=== PATIENT | male | born 1960 | race Caucasian/White ===

== ENCOUNTER 2022-10-19 12:57 | Emergency (ER) | payer OTHER, SELFPAY ==
[2022-10-19 13:20] VITALS: BP 112/69; PULSE 63; RESP 18; TEMP 37.1; O2SAT 96; BMI 36.5
--- NOTE | 2022-10-19 13:24 | CRLHL7_ITS ---
For Patients: As a result of the Century Cures Act, medical imaging exams and procedure reports are released immediately into your electronic medical record. You may view this report before your referring provider. If you have questions, please contact your health care provider. Indication: Fall on blood thinner Technique: Volumetric multidetector CT images of the head were obtained without the administration of low osmolar intravenous contrast. Comparison: None available Findings: There is no intra-axial or extra-axial fluid collection. There is no mass effect or midline shift. There is age-related cortical atrophy with mild sulcal widening and ex vacuo dilatation of the lateral ventricles. There are chronic small vessel disease changes in the subcortical and periventricular white matter without lost morales-white differentiation. There is basal ganglia calcification as well as a small likely vascular calcification in the posterior left chan. Minimal circumscribed extra-axial calcifications along the left temporal pole are appreciated which could represent small calcified dural lesions such as small meningiomas. The orbits and their contents are grossly within normal limits. The bony calvarium is grossly intact. The paranasal sinuses are clear. The mastoid air cells are well aerated. Impression: Age-related and chronic small-vessel disease changes of the brain without acute intracranial abnormality. Please note that all CT scans at this facility use dose modulation, iterative reconstruction, and/or weight-based dosing when appropriate to reduce radiation dose to as low as reasonably achievable. Dictated by Fer Taylor MD @ 10/19/2022 2:32:36 PM (Electronically Signed)
--- NOTE | 2022-10-19 13:51 | CRLHL7_ITS ---
For Patients: As a result of the Century Cures Act, medical imaging exams and procedure reports are released immediately into your electronic medical record. You may view this report before your referring provider. If you have questions, please contact your health care provider. INDICATION: FALL CT CERVICAL SPINE WITHOUT CONTRAST TECHNIQUE: Multidetector axial CT imaging was performed through the cervical spine, without contrast. Sagittal and coronal reconstructions were generated. FINDINGS: No acute fractures are identified. Mature postoperative changes of anterior interbody fusion are noted at the C5-6 level. Scattered mild cervical spine degenerative changes are present. Slight anterolisthesis of C6 on C7 is likely chronic and degenerative in nature. Osseous alignment is otherwise within normal limits and no acute-appearing subluxation is seen. Prevertebral soft tissues are unremarkable. Included portions of the airway and lung apices are within normal limits. IMPRESSION: 1. No fracture, subluxation, or other acute finding identified. 2. Cervical spondylosis and postoperative changes of C5-C6 fusion, as noted above. VITALY ALTAMIRANO MD [facility] Dictated by Bora Altamirano MD @ 10/19/2022 3:08:58 PM Please note that all CT scans at this facility use dose modulation, iterative reconstruction, and/or weight-based dosing when appropriate to reduce radiation dose to as low as reasonably achievable. Dictated by: Bora Altamirano MD @ 10/19/2022 15:09:12 (Electronically Signed)
[2022-10-19 14:00] VITALS: BP 124/64; PULSE 63; RESP 16; O2SAT 99
--- NOTE | 2022-10-19 14:26 | ED_ITS ---
HPI - General Adult General Chief complaint: Head Injury/Pain Stated complaint: Fell, hit back of head Time Seen by Provider: 10/19/22 13:29 Source: patient Mode of arrival: ambulatory Limitations: no limitations History of Present Illness HPI narrative: 62-year-old male coming in today after falling and hitting his head on the concrete. He states that he was walking outside and slipped falling backwards. He denies any back pain or neck pain. Does complain of a headache in the back of the head. Denies any confusion, changes in his vision or hearing. He is not 100% certain whether or not he lost consciousness but does not believe he did. He is on Eliquis. Related Data Home Medications Medication Instructions Recorded Confirmed apixaban 5 mg tablet (Eliquis) mg 10/19/22 atorvastatin 40 mg tablet mg 10/19/22 Allergies Allergy/AdvReac Type Severity Reaction Status Date / Time acetaminophen [From Percocet] Allergy Severe Swelling Verified 10/19/22 13:25 of Lip/Tongue/Throat oxycodone [From Percocet] Allergy Severe Swelling Verified 10/19/22 13:25 of Lip/Tongue/Throat Review of Systems Status of ROS: Reports: 10 or more systems reviewed and unremarkable except as noted in History and below Exam Narrative: Exam Narrative: Overweight, well-developed patient in no acute distress. Alert and oriented. Answers questions appropriately. Mood and affect are appropriate. Thoughts are goal oriented and rational. No tangential or magical thinking noted. Patient speaks in full sentences without needing to catch his breath. HEENT: Normocephalic. Pupils are equally round reactive to light. Extraocular muscles are intact. Conjunctivae are moist without any icterus noted. Moist mucous membranes. Posterior pharynx is normal. Neck is soft without any lymphadenopathy or thyromegaly. No masses are appreciated. Patient has approximately a 1/2 inch laceration to the back of the head, not actively bleeding. Cardiovascular: Heart is regular rate and rhythm S1 and S2 are present without any murmurs. Lungs: Clear to auscultation bilaterally no wheezes rhonchi or rales are appreciated. Patient takes deep breaths without any discomfort. Extremities: Bilateral lower extremities are without edema. Normal DP and PT pulses. Skin: Well perfused without any obvious rashes. Back: Normal appearance. He has no tenderness to palpation at the cervical, thoracic or lumbar spine. He has good range of motion at the neck however with any movement he complains of the whole area feeling very sore. Const: Vital Signs, click to edit/add: Vital Signs - 24 hr 10/19/22 13:20 Temperature 98.8 F Pulse Rate [Left P ulse Oximeter] 63 Respiratory Rate 18 Blood Pressure [Le ft Upper Arm] 112/69 Pulse Oximetry 96 Oxygen Delivery Me thod Room Air Course Course Hospital Course: We did go ahead and proceed with a head and neck CT. Both were unremarkable. Scalp was cleaned with wound cleanser, anesthetized with lidocaine with epinephrine, and 5 ashu were placed. Patient unsure of his last tetanus shot, believes was greater than 10 years ago. Therefore Tdap was updated in the ED today. Vital Signs Vital signs: Initial Vital Signs Temperature 98.8 F 10/19/22 13:20 Temperature Source Temporal Artery Scan 10/19/22 13:20 Pulse Rate 63 10/19/22 13:20 Pulse Rhythm 10/19/22 13:20 Respiratory Rate 18 10/19/22 13:20 Blood Pressure 112/69 10/19/22 13:20 Blood Pressure Mean 83 10/19/22 13:20 Pulse Oximetry 96 10/19/22 13:20 Oxygen Delivery Method 10/19/22 13:20 Vital Signs Temperature 98.8 F 10/19/22 13:20 Pulse Rate 63 10/19/22 13:20 Respiratory Rate 18 10/19/22 13:20 Blood Pressure 112/69 10/19/22 13:20 Pulse Oximetry 96 10/19/22 13:20 Oxygen Delivery Method 10/19/22 13:20 Temperature 98.8 F 10/19/22 13:20 Pulse Rate 63 10/19/22 13:20 Respiratory Rate 18 10/19/22 13:20 Blood Pressure 112/69 10/19/22 13:20 Pulse Oximetry 96 10/19/22 13:20 Oxygen Delivery Method 10/19/22 13:20 Medical Decision Making MDM Narrative Medical decision making narrative: Fall with head injury and laceration of the scalp. For we discussed wound hygiene, signs and symptoms of infection reasons to return for follow-up. Discussed staple removal in 5-7 days. Given that patient will be discharged home at hour four status post fall, I do not anticipate need for follow-up we discussed the potential need for this. Patient was agreeable had no other que stions. Imaging Data CT scan - head: Attestation: I have reviewed the pertinent imaging results. Radiologist's impression: Volumetric multidetector CT images of the head were obtained without the administration of low osmolar intravenous contrast. Comparison: None available Findings: There is no intra-axial or extra-axial fluid collection. There is no mass effect or midline shift. There is age-related cortical atrophy with mild sulcal widening and ex vacuo dilatation of the lateral ventricles. There are chronic small vessel disease changes in the subcortical and periventricular white matter without lost morales-white differentiation. There is basal ganglia calcification as well as a small likely vascular calcification in the posterior left chan. Minimal circumscribed extra-axial calcifications along the left temporal pole are appreciated which could represent small calcified dural lesions such as small meningiomas. The orbits and their contents are grossly within normal limits. The bony calvarium is grossly intact. The paranasal sinuses are clear. The mastoid air cells are well aerated. Impression: Age-related and chronic small-vessel disease changes of the brain without acute intracranial abnormality. Cervical spine CT: Attestation: I have reviewed the pertinent imaging results. Radiologist's impression: CT CERVICAL SPINE WITHOUT CONTRAST TECHNIQUE: Multidetector axial CT imaging was performed through the cervical spine, without contrast. Sagittal and coronal reconstructions were generated. FINDINGS: No acute fractures are identified. Mature postoperative changes of anterior interbody fusion are noted at the C5-6 level. Scattered mild cervical spine degenerative changes are present. Slight anterolisthesis of C6 on C7 is likely chronic and degenerative in nature. Osseous alignment is otherwise within normal limits and no acute-appearing subluxation is seen. Prevertebral soft tissues are unremarkable. Included portions of the airway and lung apices are within normal limits. IMPRESSION: 1. No fracture, subluxation, or other acute finding identified. 2. Cervical spondylosis and postoperative changes of C5-C6 fusion, as noted above. Discharge Plan Discharge Clinical Impression: Head injury, Fall, Laceration of scalp Patient Disposition: Home, Self-Care Condition: Improved Additional Instructions: Keep head clean and dry. Okay to shower like he normally would and wash her hair like he normally would. Be very careful not to snag the ashu. Do not soak the head such as going swimming. Have your ashu removed by your primary care doctor in 5-7 days. Watch for signs of infection which include increasing pain in the area, redness of the area that starts to spread, or purulent drainage from the laceration. If this occurs see your doctor right away. Return to the ER if you develop any vomiting, numbness or weakness of your extremities, or confusion. Prescriptions: No Action atorvastatin 40 mg tablet Label Comments: TAKE 1 TABLET BY MOUTH ONCE DAILY Eliquis 5 mg tablet Label Comments: TAKE 1 TABLET BY MOUTH TWICE DAILY Follow Up/Referrals: Provider,Not a Local [Primary Care Provider] - Stand Alone Forms: [employer] Info Instructions
[2022-10-19 14:30] VITALS: BP 115/71; PULSE 71; RESP 16; O2SAT 96
--- NOTE | 2022-10-19 15:07 | ED.NURSE ---
[place], no [facility] tdap listed, pt states it has been well over 10 years since last dose, pt agrees as long as no horse serum is in the tetanus - checked with [facility] who states there is a possible interaction and pt should have allergy test prior, MD Hemphill updated and stated to have patient follow up with PCP this week for tetanus evaluation/to receive it there. pt agrees this is the right choice.
[2022-10-19 15:38] VITALS: BP 126/74; PULSE 80; RESP 16; TEMP 36.8
== END 2022-10-19 15:39 | disposition home or self-care (01) ==
PROVIDERS: Emergency Provider Family Medicine
DX: S01.01XA Laceration without foreign body of scalp, initial encounter (principal); W01.10XA Fall on same level from slipping, tripping and stumbling with subsequent striking against unspecified object, initial encounter
CPT/HCPCS: 12001; 70450; 72125; 90471; 90715; 99283; 99284

== ENCOUNTER 2023-09-03 13:01 | Outpatient (CLI) | payer OTHER, SELFPAY | END 2023-09-03 13:02 | disposition home or self-care (01) | LOC: WOUND 13:01 | PROVIDERS: Visit Provider Nurse Practitioner Family | DX: E11.622 Type 2 diabetes mellitus with other skin ulcer (principal); L98.493 Non-pressure chronic ulcer of skin of other sites with necrosis of muscle; I50.22 Chronic systolic (congestive) heart failure; Z79.4 Long term (current) use of insulin | CPT/HCPCS: 11043; 11046; 99212 ==

== ENCOUNTER 2023-09-09 13:33 | Outpatient (CLI) | payer OTHER, SELFPAY | END 2023-09-09 13:34 | disposition home or self-care (01) | LOC: WOUND 13:33 | PROVIDERS: Visit Provider Nurse Practitioner Family | DX: E11.622 Type 2 diabetes mellitus with other skin ulcer (principal); L98.493 Non-pressure chronic ulcer of skin of other sites with necrosis of muscle; Z79.4 Long term (current) use of insulin | CPT/HCPCS: 11043 ==

== ENCOUNTER 2023-09-16 15:05 | Outpatient (CLI) | payer OTHER, SELFPAY | END 2023-09-16 15:06 | disposition home or self-care (01) | LOC: WOUND 15:05 | PROVIDERS: Visit Provider Nurse Practitioner Family | DX: E11.622 Type 2 diabetes mellitus with other skin ulcer (principal); L98.493 Non-pressure chronic ulcer of skin of other sites with necrosis of muscle; Z79.4 Long term (current) use of insulin | CPT/HCPCS: 11043 ==

== ENCOUNTER 2023-09-23 14:59 | Outpatient (CLI) | payer OTHER, SELFPAY | END 2023-09-23 15:00 | disposition home or self-care (01) | LOC: WOUND 14:59 | PROVIDERS: Visit Provider Nurse Practitioner Family | DX: E11.622 Type 2 diabetes mellitus with other skin ulcer (principal); L98.493 Non-pressure chronic ulcer of skin of other sites with necrosis of muscle; Z79.4 Long term (current) use of insulin | CPT/HCPCS: 11043 ==

== ENCOUNTER 2023-09-30 14:59 | Outpatient (CLI) | payer OTHER, SELFPAY | END 2023-09-30 15:00 | disposition home or self-care (01) | PROVIDERS: Visit Provider Nurse Practitioner Family | DX: E11.622 Type 2 diabetes mellitus with other skin ulcer (principal); L98.493 Non-pressure chronic ulcer of skin of other sites with necrosis of muscle; I50.22 Chronic systolic (congestive) heart failure; Z79.4 Long term (current) use of insulin | CPT/HCPCS: 11042 ==

== ENCOUNTER 2023-10-07 15:13 | Outpatient (CLI) | payer OTHER, SELFPAY | END 2023-10-07 15:14 | disposition home or self-care (01) | LOC: WOUND 15:13 | PROVIDERS: Visit Provider Family Medicine | DX: E11.622 Type 2 diabetes mellitus with other skin ulcer (principal); L98.493 Non-pressure chronic ulcer of skin of other sites with necrosis of muscle; I50.22 Chronic systolic (congestive) heart failure; Z79.4 Long term (current) use of insulin | CPT/HCPCS: 11042 ==

== ENCOUNTER 2023-10-21 15:39 | Outpatient (CLI) | payer OTHER, SELFPAY | END 2023-10-21 15:40 | disposition home or self-care (01) | LOC: WOUND 15:39 | PROVIDERS: Visit Provider Nurse Practitioner Family | DX: E11.622 Type 2 diabetes mellitus with other skin ulcer (principal); L98.493 Non-pressure chronic ulcer of skin of other sites with necrosis of muscle; I50.22 Chronic systolic (congestive) heart failure; Z79.4 Long term (current) use of insulin | CPT/HCPCS: 97597 ==

== ENCOUNTER 2023-11-04 13:34 | Outpatient (CLI) | payer OTHER, SELFPAY | END 2023-11-04 13:35 | disposition home or self-care (01) | LOC: WOUND 13:34 | PROVIDERS: Visit Provider Nurse Practitioner Family | DX: E11.622 Type 2 diabetes mellitus with other skin ulcer (principal); L98.493 Non-pressure chronic ulcer of skin of other sites with necrosis of muscle; Z79.4 Long term (current) use of insulin | CPT/HCPCS: 97597 ==

== ENCOUNTER 2023-12-02 15:59 | Outpatient (CLI) | payer OTHER, SELFPAY ==
--- OUTSIDE RECORDS SUMMARY | 2023-12-02 16:01 | XMS_ITS | Clinical Summary ---
Author Name Unknown Organization [employer] [facility] Address [place], [place] [address] Care Team Providers Care Dedicated Owner Operator Name Role Phone Maritza Torres RACEHORSE TRAINER Primary Care Provider Coordinators, Vad Unavailable [phone] Michelle Vazquez RACEHORSE TRAINER Unavailable Unavailab le Allergies Active Allergy Reactions Criticality Noted Date Comments Fluoxetine Anxiety,Other - Describe In Comment Field 04/15/2017 makes me crazy makes me crazy Makes me crazy Grass Pollen Edema,Hives High 12/22/2021 Hydromorphone Nausea Only 05/02/2023 No nausea in small doses -larger IV doses makes him nauseous Oxycodone Anaphylaxis,Itching ,Edema High 04/15/2017 Oxycodone-Acetaminophen Anaphylaxis,Vasyl a,I tching High 04/15/2017 Patient tolerates tylenol Medications Medication Sig Dispensed Refills Start Date End Date Status continuous glucose monitor SENSOR KIT (FreeStyle Gerda 14 Day Sensor) FreeStyle Gerda 14 Day Sensor kit REMOVE AND APPLY EVERY 14 DAYS 0 Active amiodarone (CORDARONE) 200 mg tabletIndications:A trial dysrhythmia Take 1 Tablet (200 mg) by mouth once daily. 60 Tablet 1 3 Active atorvastatin (LIPITOR) 40 mg tabletIndications:D yslipidemia Take 1 Tablet (40 mg) by mouth at bedtime. 60 Tablet 1 3 Active dapagliflozin propanediol (FARXIGA) 10 mg tabletIndications:A cute on chronic heart failure, unspecified heart failure type (HC) Take 1 Tablet (10 mg) by mouth once daily. 60 Tablet 1 3 Active pantoprazole (PROTONIX) 40 mg delayed-release tabletIndications:A nticoagulated Take 1 Tablet (40 mg) by mouth once daily. 90 Tablet 1 3 Active sennosides (SENNA) 8.6 mg tabletIndications:D rug-induced constipation Take 2 Tablets (17.2 mg) by mouth once daily if needed for Constipation. 30 Tablet 1 3 Active insulin glargine, U-100, (Lantus Solostar U-100 Insulin) 100 unit/mL (3 mL) penIndications:Type 2 diabetes mellitus with insulin therapy (HC) Inject 14 units subcutaneous every morning AND 8 units once daily in the evening. 15 mL 0 3 Active Insulin Crum, Disposable, (Kortney Pen Needle) 32 gauge x 5/32Indications:Ty pe 2 diabetes mellitus with insulin therapy (HC) As directed. Remove the 2 covers on the insulin pen needle before administering insulin dose. 100 Each 0 3 Active cholestyramine-sucr ose 4 G per scoop (Questran) 4 gram powder Mix 4 g in liquid then take by mouth once daily if needed (loose stools). 0 Active WalkerIndications:C hronic systolic heart failure (HC),LVAD (left ventricular assist device) present (HC),Injury of right knee, initial encounter,Acute on chronic combined systolic (congestive) and diastolic (congestive) heart failure (HC),Ischemic cardiomyopathy Walker with front wheels for home use. 1 Each 0 3 Active acetaminophen (TYLENOL EXTRA STRGTH) 500 mg tabletIndications:A cute pain of left knee Take 2 Tablets (1,000 mg) by mouth three times daily. For 7 days then 1000 mg three times daily as needed for pain Max acetaminophen dose: 4000mg in 24 hrs. 60 Tablet 0 3 Active insulin aspart, U-100, (NovoLOG FlexPen U-100 Insulin) 100 unit/mL (3 mL) pen Inject 8 units subcutaneously with each meal PLUS sliding scale based upon pre-meal blood sugar. 150 - 199...1 units; 200 - 249...2 units; 250 - 299 ...3 units; 300 - 349 ..4 units; 350 or greater...5 units. Max daily dose 33 units 0 Active torsemide (DEMADEX) 20 mg tablet Take 1 tablet by mouth daily if weight >213 lbs. Alert LVAD coordinators if weight falls below 210 lbs. 0 Active medication order composerIndications :Wound infection VASHE wound cleanser 16 fl oz bottle - 2 per month 2 Bottle 2 3 Active sildenafil citrate (VIAGRA) 25 mg tabletIndications:E rectile dysfunction, unspecified erectile dysfunction type Take 1 Tablet (25 mg) by mouth once daily if needed for Erectile Dysfunction. Take 30 min to 4 hours before sexual activity. Max 50mg/24hr. Hold morning Carvedilol on days you use Viagra. 15 Tablet 1 3 Active polyethylene glycol (MIRALAX; GLYCOLAX) 17 g per packet packetIndications:C onstipation due to opioid therapy Mix 17 g in liquid then take by mouth once daily if needed for Constipation. 30 Each 3 3 Active durable medical equipment (DME)Indications:Te ndinitis of left knee,Chronic pain of left knee Reddie Brace, Large 1 Each 0 3 Active carvediloL (Coreg) 6.25 mg tabletIndications:H FrEF (heart failure with reduced ejection fraction) (HC) Take 1 Tablet (6.25 mg) by mouth two times daily. 180 Tablet 3 3 Active sertraline (ZOLOFT) 50 mg tabletIndications:D epression, unspecified depression type Take 2 Tablets (100 mg) by mouth every morning. 180 Tablet 3 3 Active cephalexin (KEFLEX) 500 mg capsuleIndications: Complication involving left ventricular assist device (LVAD), initial encounter Take 1 Capsule (500 mg) by mouth two times daily. 60 Capsule 1 3 Active traZODone (DESYREL) 50 mg tabletIndications:I nsomnia, unspecified type TAKE 1 TABLET BY MOUTH AT BEDTIME, MAY REPEAT ONCE 90 Tablet 3 3 Active traMADoL (ULTRAM) 50 mg tabletIndications:M edial knee pain, right,Sprain of medial collateral ligament of right knee, initial encounter,Primary osteoarthritis of right knee,Tendinitis of left knee,Chronic pain of left knee Take 1 Tablet (50 mg) by mouth every 6 hours if needed for Pain. 20 Tablet 0 3 Active cephalexin (KEFLEX) 500 mg capsuleIndications: Complication involving left ventricular assist device (LVAD), subsequent encounter Take 1 Capsule (500 mg) by mouth two times daily. 60 Capsule 2 4 02/24/20 24 Active ergocalciferol (VITAMIN D2; DRISDOL) 50,000 unit capsuleIndications: Chronic systolic HF (heart failure) (HC) Take 1 Capsule (50,000 units) by mouth every Saturday and for 20 doses. 8 Capsule 2 3 01/21/20 24 Active gabapentin (NEURONTIN) 100 mg capsuleIndications: Chronic systolic HF (heart failure) (HC) Take 1 Capsule (100 mg) by mouth two times daily. 180 Capsule 1 3 Active melatonin 5 mg tab tabletIndications:I nsomnia, unspecified type Take 1 Tablet (5 mg) by mouth at bedtime. 0 3 Active alirocumab (Praluent Pen) 150 mg/mL pnij 0 Active apixaban (ELIQUIS) 5 mg tablet Take 5 mg by mouth. 0 2 Active aspirin chewable 81 mg chewable tablet Chew 81 mg by mouth. 0 3 Active azithromycin (ZITHROMAX) 250 mg tablet 0 Active SantyL ointment APPLY A ROSE THICK LAYER TOPICALLY TO THE WOUNDBED FOLLOW WOUND CARE ORDERS 0 3 Active dulaglutide (Trulicity) 1.5 mg/0.5 mL subcutaneous pen 0 Active escitalopram oxalate (LEXAPRO) 20 mg tablet Take 20 mg by mouth. 0 2 Active furosemide (LASIX) 40 mg tablet Take 1 Tablet by mouth once daily. 0 2 Active glipiZIDE (GLUCOTROL) 10 mg tablet 0 Active LORazepam (ATIVAN) 0.5 mg tab TAKE 1 TABLET BY MOUTH EVERY 8 HOURS NEEDED FOR ANXIETY FOR UP TO 2 DOSES 0 Active metOLazone (ZAROXOLYN) 2.5 mg tablet Take 2.5 mg by mouth once daily if needed. 0 3 Active metoprolol tartrate (LOPRESSOR) 25 mg tablet 0 Active sacubitril-valsarta n (ENTRESTO 49 MG-51 MG TABLET) 49-51 mg tablet 0 Active warfarin (COUMADIN) 1 mg tabletIndications:L VAD (left ventricular assist device) present (HC) Take 3 mg by mouth on /Sat and 4 mg all other days 0 4 Active melatonin 3 mg tabletIndications:I nsomnia, unspecified type Take 1 Tablet (3 mg) by mouth at bedtime. 0 3 11/14/20 23 Discontinu ed(Reorder (E-cancel not sent)) HYDROcodone-acetami nophen (Hayes) 5-325 mg per tabletIndications:M edial knee pain, right Take 1 Tablet by mouth one time if needed for Pain. Twice daily as needed with wound cares. Use least amount possible. Max acetaminophen: 4000mg/24 hrs. 20 Tablet 0 3 11/13/20 Discontinu ed(*Med complete/R egimen complete/L evel of care change) warfarin (COUMADIN) 1 mg tabletIndications:L VAD (left ventricular assist device) present (HC) Take 4 mg on Mondays and Fridays; 3 mg all other days of the week. 280 Tablet 3 3 11/05/20 Discontinu ed(Reorder (E-cancel not sent)) warfarin (COUMADIN) 1 mg tabletIndications:L VAD (left ventricular assist device) present (HC) Take 3 mg daily. 0 3 11/22/20 Discontinu ed(*Medica tion adjustment ) warfarin (COUMADIN) 1 mg tabletIndications:L VAD (left ventricular assist device) present (HC) Take 5 mg by mouth today (11/22/23), then alternate 3 mg and 4 mg every other day, starting with 4 mg on 11/23/23. 360 Tablet 3 3 11/28/19 24 Discontinu ed(*Medica tion adjustment ) Hospital, Clinic, or Other Facility Administered Medication Ordered Dose Route Frequency Start Date End Date Status methylPREDNISolone acetate 40 mg/mL (DEPO-MEDROL) injection 40 mgIndications:Primary osteoarthritis of right knee,Primary osteoarthritis of left knee 40 mg IArtic ONE TIME 12/02/2023 12/02/2023 Ended methylPREDNISolone acetate 40 mg/mL (DEPO-MEDROL) injection 40 mgIndications:Primary osteoarthritis of right knee,Primary osteoarthritis of left knee 40 mg IArtic ONE TIME 12/02/2023 12/02/2023 Ended Active Problems Problem Noted Date Diagnosed Date Chronic HFrEF (heart failure with reduced ejection fraction) 08/05/2023 Extravasation injury of IV c atheter site with other complication 08/05/2023 Cellulitis of arm, left 07/24/2023 Necrotic eschar 07/24/2023 LVAD (left ventricular assist device) present Overview: s/p Heartmate 3 LVAD Implant via Thoracotomy, off pump on 06/03/23 as destination therapy for ICM (previous sternotomy), Protek RVAD placed by Dr. Ruano in [employer] CV Surgeon: Dr. Wilfredo Hargrove Primary HF/VAD Relay Checker: Dr. Samara Prince Primary VAD Coordinator: TBD VAD EMERGENCY Referring MD: Atrial flutter 05/01/2023 Type 2 diabetes mellitus wit h other circulatory complications 12/22/2021 Major depressive disorder 09/28/20212022 Tobacco dependence due to cigarettes 08/04/2021 05/01/2023 Presence of automatic (implantable) cardiac defi brillator 08/03/2021 05/01/2023 Stage 3 chronic kidney disease 06/28/2021 0 05/01/2023 Ischemic cardiomyopathy S/P CABG (coronary artery bypass graft) Morbid obesity Resolved Problems Problem Noted Date Diagnosed Date Resolved Date Chronic systolic heart failure 07/26/2023 08/10/2023 Infection of intravenous catheter 07/24/2023 08/10/2023 ANTONIO (acute kidney injury) 05/01/2023 Fracture of multiple ribs of left side 05/01/2023 08/10/2023 Diabetic ketoacidosis withou t coma associated with type 2 diabetes mellitus 02/14/2023 08/10/2023 Shock circulatory 02/14/2023 08/10/2023 Hyperkalemia 02/14/2023 08/10/2023 Acute non-ST elevation myoca rdial infarction (NSTEMI) 02/14/2023 08/10/2023 Cardiomyopathy, unspecified type 12/22/2021 08/10/2023 Acute kidney failure with le robert of tubular necrosis 08/10/2023 Acute on chronic combined sy stolic (congestive) and diastolic (congestive) heart failure 08/10/2023 ANTONIO (acute kidney injury) Cardiogenic shock 08/10/2023 Encounters Date Type Department Care Team Description 12/02/2023 11:30 AM SLIP MAKER Office Visit [facility] [address] [facility] [place] [address] Edmond Rousseau PA Knee Pain/problem (f/u bilateral knees) 12/02/2023 10:00 AM SLIP MAKER Hospital Encounter [facility] [address] [place] [address] Arrived 12/02/2023 Travel 11/28/2023 Telephone [facility] [address] [facility] [address] [place] [address] Jody Enrique RN Weight 11/28/2023 Telephone [facility] [address] [place] [address] Kaykay Denise, JODI Anticoagulation (INR 1.8) 11/27/2023 3:11 PM SLIP MAKER - 11/27/2023 11:59 PM SLIP MAKER Hospital Encounter [facility] [address], [place] [address] LVAD (left ventricular assist device) present (HC); Chronic systolic HF (heart failure) (HC) 11/27/2023 10:00 AM SLIP MAKER - 11/27/2023 3:10 PM SLIP MAKER Hospital Encounter [facility] [address], [place] [address] 11/27/2023 Travel 11/22/2023 11:00 AM SLIP MAKER - 11/22/2023 11:59 PM SLIP MAKER Hospital Encounter [facility] [address], [place] [address] Dominguez Chi MD Heart failure (HC); LVAD (left ventricular assist device) present (HC); Acute non-ST elevation myocardial infarction (NSTEMI) (HC) 11/22/2023 Travel 11/22/2023 Telephone [facility] [address] [place] [address] Kaykay Denise RN Anticoagulation (INR 1.4) 11/21/2023 Orders Only [facility] Staff, Other Clinical 1 scan: (1-Ord) <No description> 11/13/2023 11:30 AM SLIP MAKER Office Visit [facility] [address] [place] [address] Booker Marc MD Infection 11/13/2023 11:00 AM SLIP MAKER Office Visit [facility] [address] [place] [address] Kimberly Torres, REYES LVAD 11/13/2023 10:00 AM SLIP MAKER Orders Only [facility] [address] [place] [address] Lab 11/13/2023 Travel 11/13/2023 Office Visit [facility] [address] [place] [address] Marbella Montejo, PharmD Medication Management 11/11/2023 10:15 AM SLIP MAKER - 11/11/2023 11:59 PM SLIP MAKER Hospital Encounter [facility] [address] [place] [address] Edmond Rousseau PA Bailey, Lisa, PT 11/11/2023 Travel 11/08/2023 11:00 AM SLIP MAKER Office Visit [facility] [address] [place] [address] Edmond Rousseau PA Follow Up (right knee) 11/08/2023 Travel 11/06/2023 10:15 AM SLIP MAKER - 11/06/2023 11:59 PM SLIP MAKER Hospital Encounter [facility] ? [facility] [address] [place] [address] Edmond Rousseau PA Bailey, Lisa, PT 11/06/2023 Orders Only [facility] [address] [place] [address] Rosibel Johnson, PT <No scans attached> 11/06/2023 Travel 11/05/2023 Telephone [facility] [address] [facility] [address] [place] [phone] Jody Enrique RN Anticoagulation (INR 3.2) 11/05/2023 Telephone [facility] [address] [place] [phone] Jody Enrique RN Anticoagulation (INR 3.2) 11/04/2023 10:15 AM SLIP MAKER - 11/04/2023 11:59 PM SLIP MAKER Hospital Encounter [facility] ? [facility] [address], [place] [address] Edmond Rousseau PA Bailey, Lisa, PT 11/04/2023 Orders Only [facility] Staff, Other Clinical 1 scan: (1-Ord) <No description> 11/04/2023 Travel 10/30/2023 2:13 PM SLIP MAKER - 10/30/2023 11:59 PM SLIP MAKER Hospital Encounter [facility] [address] [place] [address] LVAD (left ventricular assist device) present (HC) 10/30/2023 10:15 AM SLIP MAKER - 10/30/2023 2:12 PM SLIP MAKER Hospital Encounter [facility] ? [facility] [address] [place] [address] TobEdmond maurice PA Bailey, Lisa, PT 10/30/2023 Telephone [facility] [address] [place] [address] Jody Enrique RN Anticoagulation (INR 2.7) 10/30/2023 Orders Only [facility] Staff, Other Clinical 1 scan: (1-Ord) <No description> 10/30/2023 Travel 10/28/2023 10:15 AM SLIP MAKER - 10/28/2023 11:59 PM SLIP MAKER Hospital Encounter [facility] [address] [place] [address] Edmond Rousseau PA Bailey, Lisa, PT 10/28/2023 Travel 10/25/2023 Refill [facility] [address] [place] [address] Fransico Daniel MD Refill Request (Trazodone) 10/23/2023 12:15 PM SLIP MAKER - 10/23/2023 11:59 PM SLIP MAKER Hospital Encounter [facility] [address] [place] [address] Edmond Rousseau PA Bailey, Lisa, PT 10/23/2023 Travel 10/21/2023 9:30 AM SLIP MAKER Office Visit [facility] [address] [place] [address] Booker Marc MD Infection 10/21/2023 9:00 AM SLIP MAKER Office Visit [facility] [address] [place] [address] Megan Hamlin MD LVAD 10/21/2023 8:00 AM SLIP MAKER Orders Only [facility] [address] [place] [address] Lab 10/21/2023 Travel 10/21/2023 Office Visit [facility] [address] [place] [phone] Marbella Montejo, PharmD Medication Management; Error-please disregard (opened in error) 10/14/2023 Telephone [facility] [address] [facility] [address] [place] [address] Jody Enrique RN Anticoagulation (INR 2.4) 10/09/2023 11:00 AM SLIP MAKER Ancillary Procedure [facility] [address] [place] [phone] 10/09/2023 10:30 AM SLIP MAKER Office Visit [facility] [address] [place] [address] Edmond Rousseau PA Follow Up (right knee) 10/09/2023 Travel 10/08/2023 8:23 AM SLIP MAKER - 10/08/2023 11:59 PM SLIP MAKER Hospital Encounter [facility] [address] [place] [address] Edmond Rousseau PA Bailey, Lisa, PT 10/07/2023 10:15 AM SLIP MAKER - 10/07/2023 11:59 PM SLIP MAKER Hospital Encounter [facility] [address] [place] [address] Edmond Rousseau PA Bailey, Lisa, PT 10/07/2023 Travel 10/04/2023 12:25 PM SLIP MAKER - 10/04/2023 11:59 PM SLIP MAKER Hospital Encounter [facility] [address] [place] [address] LVAD (left ventricular assist device) present (HC) 10/04/2023 Telephone [facility] [address] [facility] [address] [place] [phone] Kaykay Denise, RN Anticoagulation (INR 2.1) 10/04/2023 Telephone [facility] [address] [address] Kaykay Denise, RN Appointment Reminder (to get INR) 10/02/2023 8:45 AM SLIP MAKER - 10/02/2023 11:59 PM SLIP MAKER Hospital Encounter [facility] ? [facility] [address] [place] [address] Edmond Rousseau PA Bailey, Lisa, PT 10/02/2023 Telephone [facility] [address] [phone] Jody Enrique RN Dressing Change (LVAD Driveline exit site.) 10/02/2023 Travel 10/01/2023 1:00 PM SLIP MAKER Nurse/Clinic Staff Only [address] [address] Nurse/Clinic Staff Only (Culture swab ) 09/30/2023 4:39 PM SLIP MAKER - 09/30/2023 5:28 PM SLIP MAKER Emergency [facility] [address], [place] [address] Sulema Gates NP 09/30/2023 12:34 PM SLIP MAKER - 09/30/2023 11:59 PM SLIP MAKER Hospital Encounter [facility] ? [facility] [address], [place] [address] Edmond Rousseau PA Bailey, Lisa, PT 09/30/2023 Travel 09/30/2023 Orders Only [facility] [address] [phone] Kimberly Torres, REYES <No scans attached> 09/25/2023 Telephone [facility] [address] [place] [address] Kaykay Denise RN Anticoagulation (INR 2.0; CBC WNL) 09/24/2023 4:17 PM CDT - 09/24/2023 11:59 PM CDT Hospital Encounter [facility] [address] [place] [address] Acute on chronic heart failure, unspecified heart failure type (HC); LVAD (left ventricular assist device) present (HC) 09/24/2023 Orders Only [facility] [address] [place] [phone] Jody Enrique RN <No scans attached> 09/17/2023 10:45 AM CDT - 09/17/2023 11:59 PM CDT Hospital Encounter [facility] [address] [place] [address] Edmond Rousseau, PA Yaneth Sr, PT Encounter for person encountering health services 09/16/2023 8:30 AM CDT Office Visit [facility] [address] [place] [address] Booker Marc MD Infection 09/16/2023 8:00 AM CDT Office Visit [facility] [address] [place] [address] Megan Hamlin MD LVAD 09/16/2023 Office Visit [facility] [address] [place] [address] Marbella Montejo, PharmD Medication Management 09/16/2023 Travel 09/13/2023 8:30 AM CDT Home Care Visit [facility] [address] [place] [address] Amy Rausch, RN SN - OASIS DISCHARGE 09/13/2023 Telephone [facility] [address] [facility] [address] [place] [phone] Kaykay Denise, JODI Anticoagulation (INR 1.8) 09/13/2023 Orders Only [facility] [address] [place] [address] Samara Prince MD Lab 2023 Orders Only [facility] Scanner 1 scan: (1-Ord) [facility]ESSINAL, 2023 09/10/2023 11:00 AM CDT Home Care Visit [facility] [address] [place] [address] Sage Reyes, PT PT - DISCIPLINE DISCHARGE 09/10/2023 9:00 AM CDT Home Care Visit [facility] [address] [place] [phone] Emma Temple [facility] - HOME VISIT 09/10/2023 Orders Only [facility] [address] [facility] [address] [place] [address] Jody Enrique RN <No scans attached> 09/10/2023 Telephone [facility] [address] [facility] [address] [place] [phone] Jody Enrique RN Anticoagulation (INR 1.8) 09/09/2023 3:35 PM CDT - 09/09/2023 11:59 PM CDT Hospital Encounter [facility] [address] [place] [address] LVAD (left ventricular assist device) present (HC) 09/06/2023 12:30 PM CDT Home Care Visit [facility] [address] [place] [address] Carolyn Perez, RN SN - LONG VISIT (>90 MINUTES) 09/06/2023 Telephone [facility] [address] [facility] [address] [place] [phone] Jody Enrique RN Anticoagulation (INR 2.4) 09/03/2023 11:00 AM CDT Home Care Visit [facility] [address] [place] [address] Sage Reyes, PT PT - HOME VISIT 09/03/2023 9:00 AM CDT Home Care Visit [facility] [address] [place] [address] Emma Temple RAIL TRANSIT OPERATOR - HOME VISIT 09/03/2023 Telephone [facility] [address] [facility] [address] [place] [phone] Jody Enrique RN Anticoagulation (INR 3.4) 09/02/2023 11:30 AM CDT Home Care Visit [facility] [address] [place] [address] Amy Rausch RN SN - LONG VISIT (>90 MINUTES) from Last 3 Months Immunizations Name Administration Dates Next Due COVID-19 vaccine (Moderna 10 0mcg/0.5mL) PF MDV 03/01/2022 Hep B (Hepatitis B (Adult) R ecombinant Adjuvanted) 09/28/2021 Influenza RIV4 (Age 18+ Years) PRESERV FREE 02/2023 Influenza, IIV4 08/21/2022,09/30/2021,09/08/2021 Pneumococcal Conj 20-valent (Prevnar 20) 023 RSV, Recombinant ADJ Reconst ituted (Arexvy 120MCG/0.5mL) 09/16/2023 Tdap 12/07/2022 Social History Tobacco Use Types Packs/Day Years Used Date Smoking Tobacco: Former Cigarettes 1 33.3 1 990 - 02/26/2023 Smokeless Tobacco: Never Comments:TIP 02/20/23 Alcohol Use Standard Drinks/Week Comments Never 0 (1 standard drink = 0.6 oz pur e alcohol) 0 PHQ-2 Answer Date Recorded PHQ-2 TOTAL SCORE 0 08/30/2023 Social Connections Answer Date Recorded Frequency of Communication with Friends and Fami ly 0 08/30/2023 Financial Resource Strain Answer Date R ecorded Difficulty of Paying Living Expenses 2 08/30/2023 Difficulty of Paying Living Expenses 1 08/30/2023 Food Insecurity Answer Date Recorded Worried About Running Out of Food in the Last Ye ar 1 08/30/2023 Transportation Needs Answer Date Record ed Lack of Transportation (Medical) 1 08/30/2023 Housing Stability Answer Date Recorded Unable to Pay for Housing in the Last Year 1 08/30/2023 Sex and Gender Information Value Date Recorded Sex Assigned at Not on file Gender Identity Not on file Sexual Orientation Not on file Obstetrics History Last Filed Vital Signs Vital Sign Reading Time Taken Comments Blood Pressure 107/83 10/21/2023 8:54 AM SLIP MAKER Doppler 100, MAP 91 Pulse 73 09/30/2023 5:18 PM SLIP MAKER Temperature 36.9 ??C (98.4 ??F) 09/30/2023 5 :18 PM SLIP MAKER Respiratory Rate 18 09/30/2023 5:18 PM SLIP MAKER Oxygen Saturation 99% 09/30/2023 5:1 8 PM SLIP MAKER Inhaled Oxygen Concentration - - Weight 108.5 kg (239 lb 1.6 oz) 11/22/2023 11:00 AM SLIP MAKER Height 167 cm (5' 5.75) 11/22/2023 11: 00 AM SLIP MAKER Body Mass Index 38.89 11/22/2023 11:00 AM SLIP MAKER Plan of Treatment Upcoming Encounters Date Type Department Care Team (Late st Contact Info) Description 12/04/2023 10:00 AM SLIP MAKER Appointment [address] [address] 12/05/2023 10:00 AM SLIP MAKER Appointment [facility] [address], [place] [address] 12/09/2023 10:00 AM SLIP MAKER Appointment [facility] [address], [place] [address] 12/11/2023 10:00 AM SLIP MAKER Appointment [address] [address] 12/12/2023 10:00 AM SLIP MAKER Appointment [facility] [address] [place] [address] 12/16/2023 Cardiac Device Check [facility] [phone] 12/16/2023 10:00 AM SLIP MAKER Appointment [facility] [address] [place] [address] 12/18/2023 10:00 AM SLIP MAKER Appointment [facility] [address] [place] [address] 12/19/2023 10:00 AM SLIP MAKER Appointment [facility] [address] [place] [address] 12/23/2023 10:00 AM SLIP MAKER Appointment [facility] [address] [place] [address] 12/25/2023 10:00 AM SLIP MAKER Appointment [facility] [address] [place] [address] 12/26/2023 10:00 AM SLIP MAKER Appointment [facility] [address] [place] [address] 12/30/2023 10:00 AM SLIP MAKER Appointment [facility] [address] [place] [address] 01/01/2024 10:00 AM SLIP MAKER Appointment [facility] [address] [place] [address] 01/02/2024 10:00 AM SLIP MAKER Appointment [facility] [address], [place] [address] 01/02/2024 2:45 PM SLIP MAKER Office Visit [facility] [place] [address] [address] [phone] Brando Acosta DPM [facility] [place] Johan [facility] [address] 01/06/2024 10:00 AM SLIP MAKER Appointment [facility] [address] [place] [address] 01/08/2024 10:00 AM SLIP MAKER Appointment [facility] [address] [place] [address] 01/09/2024 10:00 AM SLIP MAKER Appointment [facility] [address] [place] [address] 01/13/2024 10:00 AM SLIP MAKER Appointment [facility] [address] [place] [address] 01/15/2024 10:00 AM SLIP MAKER Appointment [facility] [address] [place] [address] 01/16/2024 10:00 AM SLIP MAKER Appointment [facility] [address] [place] [address] 01/20/2024 10:00 AM SLIP MAKER Appointment [facility] [address] [place] [address] 01/22/2024 10:00 AM SLIP MAKER Appointment [facility] [address] [place] [address] 01/23/2024 10:00 AM SLIP MAKER Appointment [facility] [address] [place] [address] 01/27/2024 10:00 AM SLIP MAKER Appointment [facility] [address] [place] [address] 01/29/2024 10:00 AM SLIP MAKER Appointment [facility] [address] [place] [address] 01/30/2024 10:00 AM SLIP MAKER Appointment [facility] [address] [place] [address] 02/03/2024 10:00 AM CDT Appointment [facility] [address] [place] [address], [place] [address] 02/05/2024 10:00 AM CDT Appointment [facility] [address] [place] [address] 02/06/2024 10:00 AM CDT Appointment [facility] [address] [place] [address] 02/10/2024 10:00 AM CDT Appointment [facility] [address] [place] [address] 02/12/2024 10:00 AM CDT Appointment [facility] [address] [place] [address] 02/13/2024 10:00 AM CDT Appointment [facility] [address] [place] [address] 02/17/2024 10:00 AM CDT Appointment [facility] [address] [place] [address] Health Maintenance Due Date Last Done Comments Zoster (shingles) series for age 50+ (1 of 2) [address] (for lung CA) ag e 50-80 06/10/2024 06/10/2023, 02/12/2023 BMI (ht and wt on same day) for age 18+ 08/30/2024 08/30/2023, 05/01/2023, 03/21/2023, Additional history exists Depression screening for age 12+ 09/02/2024 09/02/2023, 08/30/2023, 07/17/2023, Additional history exists Lipids for age 45-75 02/19/2028 02/18/2023 Tetanus booster 12/07/2032 12/07/2022 Colonoscopy through age 75 05/08/2033 05/08/2023 Tdap Completed 12/07/2022 HIV for age 15-65 Completed 05/05/2023 Hepatitis C screening for ag e 18-79 Completed 05/05/2023 Influenza for age 50-64 Completed 08/28/20, 08/21/2022, 09/30/2021, Additional history exists COVID-19 vaccine series Completed 09/16/20, 08/21/2022, 03/01/2022, Additional history exists Pneumococcal series for age 6-64 Completed 09/16/20 Medical Devices Implanted Type Area Store Clerk Checker Device Identifier Shelf Expiration Date Model / Serial / Lot Graft Vasc 8mm 30cm Hemhernan [employer] Stra - [id number] Implanted:Qty: 1 on 05/22/2023 by Wilfredo Hargrove MD at [facility] Grafts Right: Chest [employer] 12/25/2027 [id number] / [id number] Description:Right Axillary I mpella 5.5 Pump Lvad Heartmate 3 [facility] [id number] Implanted:Qty: 1 on 06/03/2023 by Wilfredo Hargrove MD at [facility] LVAD N/A: Heart [employer] 12/04/2024 [id number] / [id number] / Procedures Procedure Name Priority Date/Time Associated Diagnosis Comments SCAN-CARDIAC REHABILITATION 12/02/2023 10:22 AM SLIP MAKER SCAN-CARDIAC REHABILITATION 12/02/2023 10:22 AM SLIP MAKER SCAN-CARDIAC REHABILITATION 12/02/2023 10:22 AM SLIP MAKER BASIC METABOLIC PANEL Today 11/27/2023 3:26 PM SLIP MAKER Chronic systolic HF (heart failure) (HC) PROTIME-INR Today 11/27/2023 3:26 PM SLIP MAKER LVAD (left ventricular assist device) present (HC) SCAN-CARDIAC REHABILITATION 11/27/2023 10:09 AM SLIP MAKER SCAN-CARDIAC REHABILITATION 11/22/2023 12:35 PM SLIP MAKER SCAN-LABORATORY REPORT 12:00 AM SLIP MAKER CBC WITH AUTO DIFFERENTIAL Routine 11/13/2023 10:13 AM SLIP MAKER Chronic systolic HF (heart failure) (HC) LVAD (left ventricular assist device) present (HC) MAGNESIUM Routine 11/13/2023 10:13 AM SLIP MAKER Chronic systolic HF (heart failure) (HC) LVAD (left ventricular assist device) present (HC) PROTIME-INR Routine 11/13/2023 10:13 AM SLIP MAKER Chronic systolic HF (heart failure) (HC) LVAD (left ventricular assist device) present (HC) CBC WITH AUTO DIFFERENTIAL Routine 11/13/2023 10:13 AM SLIP MAKER Chronic systolic HF (heart failure) (HC) LVAD (left ventricular assist device) present (HC) BASIC METABOLIC PANEL Routine 11/13/2023 10:13 AM SLIP MAKER Chronic systolic HF (heart failure) (HC) LVAD (left ventricular assist device) present (HC) SCAN-LABORATORY REPORT 3 12:00 AM SLIP MAKER PROTIME-INR Today 10/30/2023 2:29 PM SLIP MAKER LVAD (left ventricular assist device) present (HC) SCAN-LABORATORY REPORT 3 12:00 AM SLIP MAKER CBC WITH AUTO DIFFERENTIAL Routine 10/21/2023 8:48 AM SLIP MAKER LVAD (left ventricular assist device) present (HC) Chronic systolic HF (heart failure) (HC) VITAMIN D 25 (DEFICIENCY) Routine 10/21/2023 8:48 AM SLIP MAKER LVAD (left ventricular assist device) present (HC) Chronic systolic HF (heart failure) (HC) Vitamin D deficiency PRO-BNP Routine 10/21/2023 8:48 AM SLIP MAKER LVAD (left ventricular assist device) present (HC) Chronic systolic HF (heart failure) (HC) PROTIME-INR Routine 10/21/2023 8:48 AM SLIP MAKER LVAD (left ventricular assist device) present (HC) Chronic systolic HF (heart failure) (HC) MAGNESIUM Routine 10/21/2023 8:48 AM SLIP MAKER LVAD (left ventricular assist device) present (HC) Chronic systolic HF (heart failure) (HC) CBC WITH AUTO DIFFERENTIAL Routine 10/21/2023 8:48 AM SLIP MAKER LVAD (left ventricular assist device) present (HC) Chronic systolic HF (heart failure) (HC) BASIC METABOLIC PANEL Routine 10/21/2023 8:48 AM SLIP MAKER LVAD (left ventricular assist device) present (HC) Chronic systolic HF (heart failure) (HC) SCAN-LABORATORY REPORT 12:00 AM SLIP MAKER XR KNEE WB 1 VIEW AP BILATERAL AND 3 VIEWS LEFT Routine 10/09/2023 10:49 AM SLIP MAKER Tendinitis of left knee Chronic pain of left knee PROTIME-INR Today 10/04/2023 12:30 PM SLIP MAKER LVAD (left ventricular assist device) present (HC) AEROBIC BACTERIAL CULTURE, STAIN Routine 10/01/2023 12:30 PM SLIP MAKER LVAD (left ventricular assist device) present (HC) PROTIME-INR Today 09/24/2023 4:37 PM CDT Acute on chronic heart failure, unspecified heart failure type (HC) LVAD (left ventricular assist device) present (HC) CBC W PLT NO DIFF Today 09/24/2023 4:3 7 PM CDT Acute on chronic heart failure, unspecified heart failure type (HC) LVAD (left ventricular assist device) present (HC) CBC WITH AUTO DIFFERENTIAL Routine 09/13/2023 10:50 AM CDT LVAD (left ventricular assist device) present (HC) Ischemic cardiomyopathy PRO-BNP Routine 09/13/2023 10:50 AM CDT LVAD (left ventricular assist device) present (HC) Ischemic cardiomyopathy HEPATIC FUNCTION PANEL Routine 10:50 AM CDT LVAD (left ventricular assist device) present (HC) Ischemic cardiomyopathy PROTIME-INR Routine 09/13/2023 10:50 AM CDT LVAD (left ventricular assist device) present (HC) Ischemic cardiomyopathy MAGNESIUM Routine 09/13/2023 10:50 AM CDT LVAD (left ventricular assist device) present (HC) Ischemic cardiomyopathy CBC WITH AUTO DIFFERENTIAL Routine 09/13/2023 10:50 AM CDT LVAD (left ventricular assist device) present (HC) Ischemic cardiomyopathy BASIC METABOLIC PANEL Routine 09/13/2023 10:50 AM CDT LVAD (left ventricular assist device) present (HC) Ischemic cardiomyopathy SCAN-EYE EXAM 2023 12:00 AM CDT PROTIME-INR Today 09/09/2023 3:43 PM CDT LVAD (left ventricular assist device) present (HC) from Last 3 Months Results * SCAN-CARDIAC REHABILITATION (12/02/2023 10:22 AM SLIP MAKER) Only the most recent of5 resultswithin the time period is included. Scanner OTHER * (ABNORMAL) PROTIME-INR (11/27/2023 3:26 PM SLIP MAKER) Only the most recent of8 resultswithin the time period is included. INR 1.8(H) <1.3 11/27/2023 4:10 PM [facility] PROTIME 19.4(H) 10.3 - 12.3 sec 11/27/2023 4:10 PM [facility] Blood BLOOD SPECIMEN / Unknown Venipuncture / Unknown 11/27/2023 3:26 PM SLIP MAKER 11/27/2023 3:26 PM SLIP MAKER [facility] - 11/27/2023 4:10 PM SLIP MAKER ?Therapeutic Range 2.0-3.0 for most anticoagulated patients 2.5-3.5 or 4.0 for high risk patients The INR is only used for patients on stable oral anticoagulant therapy. It makes no significant contribution to the diagnosis or treatment of patients whose Protime is prolonged for other reasons. INR results are increased when heparin levels exceed 1.0 U/mL, which corresponds to an aPTT >125 seconds if the patient is on UFH. Samara Prince MD HEMATOLOGY [facility] [address] [address] * (ABNORMAL) BASIC METABOLIC PANEL (11/27/2023 3:26 PM [facility]) Only the most recent of4 resultswithin the time period is included. SODIUM 138 136 - 145 mmol/L 11/27/2023 3:57 PM [facility] POTASSIUM 4.0 3.5 - 5.1 mmol/L 11/27/2023 3:57 PM [facility] CHLORIDE 100 98 - 107 mmol/L 11/27/2023 3:57 PM [facility] CO2,TOTAL 27 22 - 29 mmol/L 11/27/2023 3:57 PM [facility] ANION GAP 11 5 - 18 11/27/2023 3:57 PM [facility] GLUCOSE 149(H) 70 - 99 mg/dL 11/27/2023 3:57 PM [facility] CALCIUM 9.4 8.8 - 10.2 mg/dL 11/27/2023 3:57 PM [facility] BUN 43(H) 8 - 23 mg/dL 11/27/2023 3:57 PM [facility] CREATININE 2.21(H) 0.70 - 1.20 mg/dL 11/27/2023 3:57 PM [facility] BUN/CREAT RATIO 19 10 - 20 3:57 PM [facility] eGFR 33(L) >90 mL/min/1.7 3m2 11/27/2023 3:57 PM [facility] Comment:As of 2022, eG FR is calculated by the CKD-EPI creatinine equation without race adjustment. ??eGFR can be influenced by muscle mass, exercise, and diet. ??The reported eGFR is an estimation only and is only applicable if the renal function is stable. Blood BLOOD SPECIMEN / Unknown Venipuncture / Unknown 11/27/2023 3:26 PM SLIP MAKER 11/27/2023 3:26 PM SLIP MAKER Kimberly Torres [facility] CHEMISTRY [facility] [address] [address] * SCAN-LABORATORY REPORT (11/21/2023 12:00 AM SLIP MAKER) Only the most recent of4 resultswithin the time period is included. Narrative 11/21/2023 12:00 AM SLIP MAKER Ordered by an unspecified provider. Other Clinical Staff OTHER * (ABNORMAL) CBC WITH AUTO DIFFERENTIAL (11/13/2023 10:13 AM SLIP MAKER) Only the most recent of3 resultswithin the time period is included. WHITE BLOOD COUNT 7.7 4.5 - 11.0 thou/cu mm 11/13/2023 11:01 AM [facility] [email or web address] LABORATORY-[facility] TRAL LABORATORY RED BLOOD COUNT 5.27 4.30 - 5.90 mil/cu mm 11/13/2023 11:01 AM [facility] LABORATORY-[facility] TRAL LABORATORY HEMOGLOBIN 14.1 13.5 - 17.5 g/dL 11/13/2023 11:01 AM [facility] LABORATORY-[facility] TRAL LABORATORY HEMATOCRIT 43.2 37.0 - 53.0 % 11/13/2023 11:01 AM [facility] TRAL LABORATORY MCV 82 80 - 100 fL 11/13/2023 11:01 AM [facility] TRAL LABORATORY MCH 26.8 26.0 - 34.0 pg 11/13/2023 11:01 AM [facility] TRAL LABORATORY MCHC 32.6 32.0 - 36.0 g/dL 11/13/2023 11:01 AM [facility] TRAL LABORATORY RDW 15.6(H) 11.5 - 15.5 % 11/13/2023 11:[address] [facility] TRAL LABORATORY PLATELET COUNT 199 140 - 440 thou/cu mm 11/13/2023 11:[address] [facility] TRAL LABORATORY MPV 10.5 6.5 - 11.0 fL 11/13/2023 11:[address] [facility] TRAL LABORATORY NRBC 0.0 % 11/13/2023 11:[address] [facility] TRAL LABORATORY ABS NRBC 0.0 thou /cu mm 11/13/2023 11:[address] [facility] TRAL LABORATORY % NEUT 73.4 % 11/13/2023 11:[address] [facility] TRAL LABORATORY % LYMPH 12.1 % 11/13/2023 11:[address] [facility] TRAL LABORATORY % MONO 10.8 % 11/13/2023 11:[address] [facility] TRAL LABORATORY % EOS 1.8 % 11/13/2023 11:[address] [facility] TRAL LABORATORY % BASO 0.9 % 11/13/2023 11:[address] [facility] TRAL LABORATORY % IMMATURE GRAN (METAS,MYELOS,[place] OS) 1.0 % 11/13/2023 11:[address] [facility] TRAL LABORATORY ABSOLUTE NEUTROPHILS 5.6 1.7 - 7.0 thou/cu mm 11/13/2023 11:[address] [facility] TRAL LABORATORY ABSOLUTE LYMPHOCYTES 0.9 0.9 - 2.9 thou/cu mm 11/13/2023 11:[address] [facility] TRAL LABORATORY ABSOLUTE MONOCYTES 0.8 <0.9 thou/cu mm 11/13/2023 11:[address] [facility] TRAL LABORATORY ABSOLUTE EOSINOPHILS 0.1 <0.5 thou/cu mm 11/13/2023 11:[address] [facility] TRAL LABORATORY ABSOLUTE BASOPHILS 0.1 <0.3 thou/cu mm 11/13/2023 11:[address] [facility] TRAL LABORATORY ABSOLUTE IMMATURE GRANULOCYTES(MET ,MYELOS,PROS) 0.1 <0.3 thou/cu mm 11/13/2023 11:01 AM SLIP MAKER [facility] TRAL LABORATORY Blood BLOOD SPECIMEN / Unknown Venipuncture / Unknown 11/13/2023 10:13 AM SLIP MAKER 11/13/2023 10:13 AM SLIP MAKER Kimberly Torres [facility] HEMATOLOGY Performing Organization Address [facility] de Phone Number [facility] [address] [place] [address], * MAGNESIUM (11/13/2023 10:13 AM SLIP MAKER) Only the most recent of3 resultswithin the time period is included. MAGNESIUM 2.3 1.6 - 2.4 mg/dL 11/13/2023 11:31 AM SLIP MAKER [facility] LABORAT[facility] Blood BLOOD SPECIMEN / Unknown Venipuncture / Unknown 11/13/2023 10:13 AM SLIP MAKER 11/13/2023 10:13 AM SLIP MAKER Kimberly Torres [facility] CHEMISTRY Performing Organization Address [facility] Phone Number [facility] [address] [place] [address], * (ABNORMAL) VITAMIN D 25 (DEFICIENCY) (10/21/2023 8:48 AM SLIP MAKER) VITAMIN D TOTAL 9.9(L) 20.0 - 80.0 ng/mL 10/21/2023 9:46 AM SLIP MAKER [facility] Blood BLOOD SPECIMEN / Unknown Venipuncture / Unknown 10/21/2023 8:48 AM SLIP MAKER 10/21/2023 8:59 AM SLIP MAKER Narrative [facility] - 10/21/2023 9:46 AM SLIP MAKER ? Vitamin D Status Deficiency: ? <20 ng/mL Insufficiency: ?20-29 ng/mL Sufficiency: ?30-80 ng/mL Possible Toxicity: ??>80 ng/mL Based on [place] of [employer] recommendations Biotin supplements may cause clinically significant interference for this test assay. ??If interference is suspected, it is strongly recommended that biotin is discontinued for at least one week prior to retesting. Jody Enrique RN SEND OUTS Performing Organization Address [facility]/State/ZIP Co de Phone Number [facility] [email or web address] [facility] LABORATORY [address] [place] [address], * (ABNORMAL) PRO-BNP (10/21/2023 8:48 AM SLIP MAKER) Only the most recent of2 resultswithin the time period is included. [facility] PRO-BNP 3,141(H) <125 pg/mL 10/21/2023 9:46 AM SLIP MAKER [facility] [email or web address] [facility] Blood BLOOD SPECIMEN / Unknown Venipuncture / Unknown 10/21/2023 8:48 AM SLIP MAKER 10/21/2023 8:59 AM SLIP MAKER Narrative [facility] [email or web address] [facility] LABORATORY - 10/21/2023 9:46 AM SLIP MAKER The following cut-points have been suggested for the use of proBNP for the diagnostic evaluation of heart failure (HF) in patient with acute dyspnea. Patients with eGFR >= 60 Diagnosis (rule in CHF) ? <50 Years Old ?450 pg/mL 50 - 75 Years Old ?900 pg/mL >75 Years Old ? 1800 pg/mL Exclusion (rule out CHF) Age Independent ?300 pg/mL A cutoff of 1200 pg/mL for patients with an eGFR <60 yields a diagnostic sensitivity of 89% and specificity of 72% for acute congestive heart failure. ? Jody L Klaus RN SEND OUTS [facility]ORY[facility] LAB[facility] [address] [place] [address], [place] * XR KNEE WB 1 VIEW AP BILATERAL AND 3 VIEWS LEFT (10/09/2023 10:49 AM SLIP MAKER) Anatomical Region Laterality Modality KNEES, KNEE L Computed Radiogr aphy 10/11/2023 10:2 0 AM SLIP MAKER Impressions 10/11/2023 10:20 AM SLIP MAKER Three views with bilateral AP weightbearing. There symmetric narrowing in both medial compartments. Vascular clips in the soft tissues medial right knee. No acute or suspicious bone lesions. Mild patellofemoral arthrosis with early marginal spurring. Dictated by Familia Pimentel MD @ 10/11/2023 10:20:21 AM (Electronically Signed) Narrative 10/11/2023 10:20 AM SLIP MAKER For Patients: ??As a result of the Cures Act, medical imaging exams and procedure reports are released immediately into your electronic medical record. ??You may view this report before your referring provider. ??If you have questions, please contact your health care provider. INDICATION: Pain. TECHNIQUE: Left knee. Procedure Note Familia Pimentel MD - 10/11/2023 For Patients: As a result of the Cures Act, medical imagingexams and procedure reports are released immediately into your electronicmedical record. You may view this report before your referring provider.If you have questions, please contact your health care provider. INDICATION: Pain. TECHNIQUE: Left knee. IMPRESSION: Three views with bilateral AP weightbearing. There symmetric narrowing in both medial compartments. Vascular clips in the soft tissues medial right knee. No acute or suspicious bone lesions. Mild patellofemoral arthrosis with early marginal spurring. Dictated by Familia Pimentel MD @ 10/11/2023 10:20:21 AM (Electronically Signed) [facility] * (ABNORMAL) AEROBIC BACTERIAL CULTURE, STAIN (10/01/2023 12:30 PM SLIP MAKER) CULTURE RESULT(A) 10/04/2023 10:52 AM SLIP MAKER [facility] CULTURE 1+ Staphylococcus aureus 10/04/2023 10:52 AM SLIP MAKER [facility] GRAM STAIN 2+ PMNs 10/04/2023 10:52 AM SLIP MAKER [facility] GRAM STAIN 1+ RBCs 10/04/2023 10:52 AM SLIP MAKER [facility] GRAM STAIN 1+ Gram Positive Cocci 10/04/2023 10:52 AM SLIP MAKER [facility] GRAM STAIN 1+ Epithelial cells 10/04/2023 10:52 AM SLIP MAKER [facility] Other (Other) Non-Blood / Unknown 10/01/2023 12:30 PM SLIP MAKER 10/01/2023 12:45 PM SLIP MAKER Narrative Organism Antibiotic Method Susceptibility Staphylococcus aureus OXACILLIN 0.5: S Comment:Oxacillin valerio sceptible should not be interpreted as penicillin or amoxicillin susceptible. Staphylococcus aureus CLINDAMYCIN 0.25: S Staphylococcus aureus DOXYCYCLINE <=0.5: S Staphylococcus aureus CEFAZOLIN S Staphylococcus aureus TRIMETHOPRIM/SULF <=0.5/9.5: S Kimberly Torres [facility]OLOG[facility] [address] [place] [address], * (ABNORMAL) CBC W PLT NO DIFF (09/24/2023 4:37 PM CDT) WHITE BLOOD COUNT 8.1 4.5 - 11.0 thou/cu mm 09/24/2023 4:41 PM [facility] RED BLOOD COUNT 4.45 4.30 - 5.90 mil/cu mm 09/24/2023 4:41 PM [facility] HEMOGLOBIN 12.3(L) 13.5 - 17.5 g/dL 09/24/2023 4:41 PM [facility] HEMATOCRIT 38.7 37.0 - 53.0 % 09/24/2023 4:41 PM [facility] MCV 87 80 - 100 fL 09/24/2023 4:41 PM [facility] MCH 27.6 26.0 - 34.0 pg 09/24/2023 4:41 PM [facility] MCHC 31.8(L) 32.0 - 36.0 g/dL 09/24/2023 4:41 PM [facility] RDW 15.5 11.5 - 15.5 % 09/24/2023 4:41 PM [facility] PLATELET COUNT 188 140 - 440 thou/cu mm 09/24/2023 4:41 PM [facility] MPV 10.5 6.5 - 11.0 fL 09/24/2023 4:41 PM [facility] Blood BLOOD SPECIMEN / Unknown Venipuncture / Unknown 09/24/2023 4:37 PM CDT 09/24/2023 4:37 PM CDT [facility] - 09/24/2023 4:41 PM CDT This procedure was originally ordered at [facility]. Jody Enrique RN HEMATOLOGY [facility] [address] [address] * (ABNORMAL) HEPATIC FUNCTION PANEL (09/13/2023 10:50 AM CDT) ALBUMIN 4.4 4.0 - 4.9 g/dL 09/13/2023 11:59 AM [facility] PROTEIN,TOTAL 6.9 6.0 - 8.0 g/dL 09/13/2023 11:59 AM [facility] BILIRUBIN,TOTAL 0.2 0.0 - 1.2 mg/dL 09/13/2023 11:59 AM [facility] BILIRUBIN,DIRECT <0.2 0.0 - 0.3 mg/dL 09/13/2023 11:59 AM [facility] BILIRUBIN,INDIRE CT 09/13/2023 11:59 AM T [facility] Comment:Unable to calculate, Direct Bili <0.2 ALK PHOSPHATASE 123 40 - 129 IU/L 09/13/2023 11:59 AM CDT [facility] ALT (SGPT) 8(L) 10 - 50 IU/L 09/13/2023 11:59 AM CDT [facility] AST (SGOT) 15 10 - 50 IU/L 09/13/2023 11:59 AM CDT [facility] Blood BLOOD SPECIMEN / Unknown Non-Lab Venipuncture / Unknown 09/13/2023 10:50 AM CDT 09/13/2023 11:29 AM CDT Jody Enrique RN CHEMISTRY [facility] [address] [id number] * SCAN-EYE EXAM (2023 12:00 AM CDT) Scanner OTHER from Last 3 Months Additional Health Concerns 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 08/12/2023 08/12/2023 Advance Directives Latest Code Status on File Code Status Date Activated Date Inactivated Comments Full Code 08/09/2023 6:01 PM 08/13/2023 3:52 PM OK to use ALEX [must be 6 weeks post VAD implant] Question Answer Comments Code Status Discussion: Reviewed Preferences Code Status History Code Status Date Activated Date Inactivated Comments Full Code 08/09/2023 6:00 PM 08/09/2023 6:01 PM Question Answer Comments Code Status Discussion: Reviewed Preferences Full Code 07/23/2023 11:03 PM 08/07/2023 4:50 PM Question Answer Comments Code Status Discussion: Reviewed Preferences Full Code 07/23/2023 11:03 PM 07/23/2023 11:03 PM Do not use ALEX Question Answer Comments Code Status Discussion: Reviewed Preferences Full Code 06/19/2023 11:18 AM 06/27/2023 6:56 PM Question Answer Comments Code Status Discussion: Reviewed Preferences Care Teams Dedicated Owner Operator Relationship Specialty Start Date End Date Maritza Torres NP [address] [place] [id number] PCP - General Nurse Practitioner - Family 10/30/21 Coordinators, Vad 07/01/23 Michelle Vazquez NP Nurse Practitioner - Mental Health 07/17/23 Laboratory 06/26/23
== END 2023-12-02 16:00 | disposition home or self-care (01) ==
LOC: WOUND 15:59
PROVIDERS: Visit Provider Nurse Practitioner Family
DX: E11.622 Type 2 diabetes mellitus with other skin ulcer (principal); L98.498 Non-pressure chronic ulcer of skin of other sites with other specified severity; Z79.4 Long term (current) use of insulin
CPT/HCPCS: G0463